=== PATIENT | female | born 1950 | race Caucasian/White ===

== ENCOUNTER 2024-09-06 10:13 | Emergency (ER) | payer MEDICARE, OTHER, SELFPAY ==
[2024-09-06 10:14] VITALS: BP 141/97
--- NOTE | 2024-09-06 11:07 | ED.GENMED ---
History of Present Illness
General
Chief Complaint: Abnormal Lab Value
Source: patient
Exam Limitations: none
Time Seen by Provider: 09/06/24 10:55
History of Present Illness
History of Present Illness:
Patient with an online physician concerning her medication. The physician reviewed her labs from early August. Noted to be anemic and they recommended ER evaluation. Patient feels fine. Primary physician is aware of the low hemoglobin and
states was to follow this up in the office. Denies lightheadedness weakness rectal bleeding melanotic stool etc. Denies shortness of breath exertional symptoms
Past History
Past History
ED Past Medical History: CAD (stent), Cancer (nonHodgkins), HTN, Hypercholesterolemia and NIDDM
ED Past Surgical History: Cardiac (cath w/ stent) and Gynecological (hyster)
Social History
Tobacco: Non-smoker
Review of Systems
Review of Systems
All Other Systems: Not applicable
Constitutional: Denies fever
Respiratory: Reports no symptoms
Cardiac: Reports no symptoms
ABD/GI: Reports no symptoms; Denies bloody stools or black stools
Phy Exam
Physical Exam
Physical Exam:
GENERAL: Alert and oriented in no apparent distress
EYE: Orbits normal.
NECK: Supple, no significant adenopathy.
ENT: Pharynx without erythema
CARDIAC: Regular rate and rhythm without any obvious murmurs.
LUNGS: Clear breath sounds,normal
ABDOMEN: Soft, without focal tenderness or distention
NEUROLOGICAL: Alert and oriented , grossly non-focal
SKIN: Warm and dry, no rash or lesion, no discoloration, skin intact.
MUSCULOSKELETAL: No edema,no deformity.Good color
PSYCH: Normal and appropriate interaction.
Course
Orders/Labs/Results
Orders:
Orders
09/06/24 11:08
Basic Metabolic Panel Urgent
Complete Blood Count/With Diff Urgent
Ferritin Urgent
Iron Urgent
TIBC [Total Iron Binding] Urgent
Abnormal Lab Results
09/06/24
11:08
RBC 4.05 L 10^6/uL
(4.20-5.40)
Hgb 8.8 L g/dL
(12.0-16.0)
Hct 29.0 L %
(37.0-47.0)
MCV 71.6 L fL
(81.0-99.0)
MCH 21.7 L pg
(27.0-31.0)
MCHC 30.3 L g/dL
(33.0-37.0)
RDW 19.8 H %
(11.5-14.5)
TIBC 510 H ug/dl
(265-497)
% Saturation 7 L %
(20-50)
09/06/24 11:08
09/06/24 11:08
Vital Signs
Initial and Last Documented VS:
Initial Vital Signs
Temp Pulse Resp BP Pulse Ox
98 F 75 16 141/97 99
09/06/24 10:14 09/06/24 10:14 09/06/24 10:14 09/06/24 10:14 09/06/24 10:14
Last Documented Vital Signs
Temp Pulse Resp BP Pulse Ox
98 F 75 16 141/97 99
09/06/24 10:14 09/06/24 10:14 09/06/24 10:14 09/06/24 10:14 09/06/24 10:14
MDM/Problems Addressed
Differential Diagnosis Includes:
Previous hemoglobin was 9.3. Clinically stable and nontoxic. Will do rectal exam recheck hemoglobin.
*Critical Care Note
Total Time (30-74mins, 75-104mins- exclusive of procedures): Not Applicable
Data Reviewed
Review of Other/Old Records Reveals: Labs and Testing
Update Note
Update Note:
Rectal exam negative. Iron studies are back and appear to be low. Will start with oral iron and follow-up.
ED Attending Note
-
Portions of this chart may have been created with voice recognition software.� Occasional wrong word or��sound alike� substitutions may have occurred due to the inherent limitations of voice recognition software.
Discharge Plan
Departure
Patient Disposition: Home (Routine Discharge)
Date of Disposition: 09/06/24
Time of Disposition: 11:55
Patient with high blood pressure during this ER visit?: Yes
Discharge Problem:
Anemia/suspect iron deficiency
Instructions: Anemia caused by low iron in adults - Discharge instructions, BLOOD PRESSURE
Prescriptions:
New
ferrous sulfate 325 mg (65 mg iron) tablet,delayed release (DR/EC)
325 mg PO BID Qty: 60 0RF
No Action
losartan 50 MG tablet
50 mg PO BID
atorvastatin 80 MG tablet
80 mg PO QPM
atenolol 25 MG tablet
25 mg PO BID
clopidogrel 75 MG tablet
75 mg PO DAILY
omeprazole 40 MG capsule,delayed release(DR/EC)
40 mg PO DAILY
paroxetine HCl 20 MG tablet
40 mg PO DAILY
aspirin 81 MG tablet,chewable
81 mg PO DAILY
metformin 500 MG tablet extended release 24 hr
500 mg PO DAILY
cholecalciferol (vitamin D3) [Vitamin D3] 400 UNITS tablet
2,000 units PO DAILY
doxycycline hyclate 100 MG capsule
100 mg PO Q12 Qty: 20 0RF
prednisone 50 MG tablet
50 mg PO DAILY Qty: 5 0RF
codeine-guaifenesin [Guaiatussin AC] 10 ML liquid
5 ml PO Q6HPRN PRN (Reason: cough) Qty: 120 0RF
Referrals:
Imelda Ibrahim MD [Active] - Next open appointment
Amauri Krishnamurthy MD [Family Provider] -
Interventions
Interventions:
*Risk Screen - Suicide Last Done: 09/06/24 10:16
*General Assessment Last Done: 09/06/24 11:25
*Neglect/Abuse Screening Last Done: 09/06/24 10:16
Discharge Date and Time
Print Language: [place]
[2024-09-06 11:23] LABS: % Basophils 0.8 % (0-2); % Eosinophils 1.7 % (0-6); % Immature Granulocytes 0.2 % (0-0.5); % Lymphocytes 22.4 % (20.5-51.1); % Monocytes 7.5 % (1.7-9.3); % Neutrophils 67.4 % (42.2-75.2); Absolute Eosinophils 0.1 10^3/uL (0-0.7); Absolute Lymphocytes 1.2 10^3/uL (1.2-3.4); Absolute Monocytes 0.4 10^3/uL (0.1-0.6); Absolute Neutrophils 3.6 10^3/uL (1.4-6.5); Hemoglobin 8.8 g/dL (12.0-16.0); Mean Corp Hgb Conc. 30.3 g/dL (33.0-37.0); Mean Corpuscular Hgb 21.7 pg (27.0-31.0); Mean Corpuscular Volume 71.6 fL (81.0-99.0); Mean Platelet Volume 9.8 fL (7.4-10.4); Nucleated Red Blood Cells % 0 %; Platelet Count 292 10^3/uL (130-400); Red Blood Cell Count 4.05 10^6/uL (4.20-5.40); Red Cell Dist. Width 19.8 % (11.5-14.5); White Blood Cell Count 5.3 10^3/uL (4.8-10.8)
[2024-09-06 11:34] LABS: Blood Urea Nitrogen 15 mg/dl (7-17); Calcium 9.6 mg/dl (8.4-10.2); Carbon Dioxide 27 mmol/L (22-30); Chloride 103 mmol/L (98-107); Glucose 99 mg/dl (70-99); Iron 39 ug/dl (37-170); Potassium 4.5 mmol/L (3.5-5.1); Sodium 139 mmol/L (135-145); eGFR > 60.00
[2024-09-06 11:42] LABS: Percent Saturation 7 % (20-50); Total Iron Binding Capacity 510 ug/dl (265-497)
[2024-09-06 14:28] LABS: Ferritin 5.2 ng/ml (11.1-264.0)
== END 2024-09-06 12:54 | disposition home or self-care (01) ==
LOC: EMR 10:13
PROVIDERS: EMERGENCY PHYSICIAN Emergency Medicine; FAMILY PHYSICIAN Family Medicine
DX: D64.9 Anemia, unspecified (principal); I25.10 Atherosclerotic heart disease of native coronary artery without angina pectoris; E11.9 Type 2 diabetes mellitus without complications; E78.00 Pure hypercholesterolemia, unspecified; I10 Essential (primary) hypertension; Z95.5 Presence of coronary angioplasty implant and graft
CPT/HCPCS: 99283; 80048; 82728; 83540; 83550; 85025

== ENCOUNTER → 2024-10-06 16:08 | Outpatient (REF) | payer MEDICARE, OTHER, SELFPAY ==
[2024-10-06 14:07] LABS: % Basophils 0.7 % (0-2); % Eosinophils 1.4 % (0-6); % Immature Granulocytes 0.2 % (0-0.5); % Lymphocytes 21.3 % (20.5-51.1); % Monocytes 6.3 % (1.7-9.3); % Neutrophils 70.1 % (42.2-75.2); Absolute Eosinophils 0.1 10^3/uL (0-0.7); Absolute Lymphocytes 1.2 10^3/uL (1.2-3.4); Absolute Monocytes 0.4 10^3/uL (0.1-0.6); Hematocrit 29.2 % (37.0-47.0); Hemoglobin 8.7 g/dL (12.0-16.0); Mean Corp Hgb Conc. 29.8 g/dL (33.0-37.0); Mean Corpuscular Hgb 21.8 pg (27.0-31.0); Mean Corpuscular Volume 73.2 fL (81.0-99.0); Mean Platelet Volume 10.1 fL (7.4-10.4); Platelet Count 320 10^3/uL (130-400); Red Blood Cell Count 3.99 10^6/uL (4.20-5.40); Red Cell Dist. Width 18.7 % (11.5-14.5); White Blood Cell Count 5.7 10^3/uL (4.8-10.8)
== END ==
LOC: OIDL 16:08
PROVIDERS: ATTENDING PHYSICIAN Internal Medicine Hematology & Oncology
DX: D50.8 Other iron deficiency anemias (principal)
CPT/HCPCS: 85025